=== PATIENT | female | born 1960 | race Caucasian/White ===

== ENCOUNTER → 2016-12-22 | Outpatient (CLI) | payer OTHER ==
--- NOTE | 2016-12-22 22:27 | MR ---
EXAMINATION TYPE: MR cervical spine wo con DATE OF EXAM: 12/22/2016 5:37 PM COMPARISON: 10/27/2014 HISTORY: Neck pain TECHNIQUE: Multiplanar, multisequence images of the cervical spine were acquired. C2-C3: No evidence for degenerative disc disease. No disc bulge/herniation or protrusion. No Canal stenosis. Foramina are patent bilaterally. C3-C4: No evidence for degenerative disc disease. No disc bulge/herniation or protrusion. No Canal stenosis. Foramina are patent bilaterally. Mild facet arthropathy. C4-C5: No evidence for degenerative disc disease. No disc bulge/herniation or protrusion. No Canal stenosis. Foramina are patent bilaterally. Mild facet arthropathy. C5-C6 level show broad based lobulated paracentral disc protrusion and marginal spurring effacing th e anterolateral thecal sac and causing mild to moderate bilateral neural foraminal narrowing, left greater than right. Severe left-sided foraminal encroachment noted. Moderate right-sided foraminal encroachment. Borderline jaren l stenosis. Axial images at the C6-C7 level small broad-based disc protrusion minimally effacing anterior thecal sac, bilateral neural foramina are patent. Axial images at the C7-T1 level are felt within normal limits. C7-T1: No evidence for degenerative disc disease. No disc bulge/herniation or protrusion. No Canal stenosis. Foramina are patent bilaterally. Cervical segments are intact. There is normal alignment. Cervical spinal cord is markedly limited f or abnormal signal due to artifact. Craniovertebral junction relationships are within normal limits. IMPRESSION: 1. Stable multilevel degenerative disc disease with severe changes at C5-6 and C6-C7. Disc protrusion s and uncovertebral joint hypertrophy at both levels result in bilateral foraminal encroachment great er on the left at both levels.
== END | disposition home or self-care (01) ==
LOC: RADMRIMAIN 16:19
PROVIDERS: ATTEND Psychiatry & Neurology Pain Medicine
DX: M50.222 Other cervical disc displacement at C5-C6 level (principal); M50.322 Other cervical disc degeneration at C5-C6 level
CPT/HCPCS: 72141

== ENCOUNTER 2018-05-08 02:42 | Observation (INO) | payer OTHER ==
[2018-05-08] MEDS ORDERED: MORPHINE SULFATE 2 MG/ML SYRINGE ONE ×3 (03:00)
[2018-05-08] MEDS ORDERED: SODIUM CHLORIDE 0.9% 1,000 ML BAG ONE ×2 (03:00)
[2018-05-08 05:29] LABS: Basophils # (A) 0.1 k/uL (0-0.2); Basophils % (A) 1 %; Eosinophils # (A) 0.1 k/uL (0-0.7); Eosinophils % (A) 1 %; HCT 44.6 % (34.0-46.0); HGB 14.9 gm/dL (11.4-16.0); Lymphocytes # (A) 2.1 k/uL (1.0-4.8); Lymphocytes % (A) 16 %; MCH 27.7 pg (25.0-35.0); MCHC 33.4 g/dL (31.0-37.0); MCV 82.9 fL (80.0-100.0); Mean Platelet Volume 6.6; Monocytes # (A) 0.6 k/uL (0-1.0); Monocytes % (A) 5 %; Neutrophils # (A) 10.2 k/uL (1.3-7.7); Neutrophils % (A) 78 %; Platelet Count 348 k/uL (150-450); RBC 5.38 m/uL (3.80-5.40); WBC 13.1 k/uL (3.8-10.6)
[2018-05-08 05:34] LABS: ALT 27 U/L (9-52); AST 18 U/L (14-36); Albumin 4.2 g/dL (3.5-5.0); Alkaline Phosphatase 71 U/L (38-126); Anion Gap 12 mmol/L; Blood Urea Nitrogen 18 mg/dL (7-17); Calcium 9.5 mg/dL (8.4-10.2); Carbon Dioxide 35 mmol/L (22-30); Chloride 97 mmol/L (98-107); Glucose 164 mg/dL (74-99); Partial Thromboplastin Time 27.8 sec (22.0-30.0); Potassium 3.5 mmol/L (3.5-5.1); Prothrombin Time 9.9 sec (9.0-12.0); Sodium 144 mmol/L (137-145); Total Bilirubin 0.3 mg/dL (0.2-1.3); Total Protein 7.2 g/dL (6.3-8.2)
[2018-05-08 05:36] LABS: Alcohol <10 mg/dL; Amylase 57 U/L (30-110); GGT 15 U/L (12-43); Lipase 199 U/L (23-300); Magnesium 1.9 mg/dL (1.6-2.3)
[2018-05-08 05:38] LABS: Appearance,Urine Clear (Clear); Bilirubin,Urine Negative (Negative); Blood,Urine Negative (Negative); Color,Urine Light Yellow; Glucose,Urine (UA) Negative (Negative); Ketones,Urine Negative (Negative); Leukocyte Esterase,Urine Negative (Negative); Nitrite,Urine Negative (Negative); PH, Urine 8.5 (5.0-8.0); Protein,Urine Trace (Negative); RBC,Urine 4 /hpf (0-5); Specific Gravity,Urine 1.023 (1.001-1.035); Squamous Epithelial Cell,Urine 1 /hpf (0-4); Urobilinogen,Urine <2.0 mg/dL (<2.0); WBC,Urine 1 /hpf (0-5)
--- NOTE | 2018-05-08 06:43 | CT ---
INDICATION: Abdominal pain, nausea and vomiting TECHNIQUE: CT acquisition is performed through the abdomen and pelvis following the administration of 100 mL Isovue-300 IV contrast. Early and delayed postcontrast imaging is performed. Sagittal and coronal reformatted images are provided. DOSE INFORMATION: CTDIvol 31.60 mGy; DLP 2092.60 mGy-cm. One or more of the following dose reduction techniques were used: automated exposure control, adjustment of the mA and/or kV according to patient size, use of iterative reconstruction technique. COMPARISON: CT abdomen and pelvis, 06/09/16. FINDINGS: The lung bases are clear. The gallbladder is surgically absent. The liver, spleen, and adrenal glands are unremarkable. There is a 2.5 x 2.7 cm cystic lesion in the tail of the pancreas, previously 2.4 x 2.1 cm. The pancreas is otherwise unremarkable. Kidneys are similar in size and enhancement. There is no hydronephrosis or perinephric stranding. There is aortoiliac atherosclerosis without aneurysm. There is no adenopathy. The appendix is not visualized. There are no obstructive or inflammatory changes of the bowel. There is left hemicolon diverticulosis without evidence of acute diverticulitis. Urinary bladder is unremarkable. Uterus is surgically absent. There are no acute osseous findings. IMPRESSION: 1. No CT evidence of acute or inflammatory process. 2. In comparison to CT performed 06/09/16, the cystic pancreatic mass has increased slightly in size, now measuring 2.5 x 2.7 cm, previously 2.4 x 2.1 cm. This is concerning for a mucinous cystic neoplasm, which can have malignant degeneration. Given increased size compared to prior, close follow-up and gastroenterology consultation are recommended to exclude malignancy.
[2018-05-08] MEDS ORDERED: ONDANSETRON 4 MG/2 ML VIAL IVP PRN (09:36)
[2018-05-08] MEDS: MORPHINE SULFATE 2 MG/ML SYRINGE IVP PRN ×3 (09:50→22:42)
[2018-05-08] MEDS: SODIUM CHLORIDE 0.9% 1,000 ML IV SCH (10:04)
[2018-05-08 13:29] VITALS: RESP 16
[2018-05-08] MEDS ORDERED: LORazepam 2 MG/ML INJ IV STA (14:16)
[2018-05-08] MEDS ORDERED: NITROGLYCERIN SL TABS 0.4 MG TAB SUBLINGUAL PRN (15:22)
[2018-05-08] MEDS: ASPIRIN 81 MG PO SCH (17:23)
[2018-05-08] MEDS: amLODIPine 10 MG TAB PO SCH (17:23)
[2018-05-08] MEDS: DULoxetine HCL 60 MG CAPSULE.DR PO SCH (17:23)
[2018-05-08] MEDS: LOSARTAN 50 MG TAB PO SCH (17:23)
[2018-05-08] MEDS: FENOFIBRATE 54 MG TAB PO SCH (17:23)
[2018-05-08] MEDS: PANTOPRAZOLE 40 MG TABLET PO SCH (17:23)
[2018-05-08] MEDS ORDERED: MAGNESIUM HYDROXIDE 2,400 MG/10 ML CUP PO PRN (21:12)
[2018-05-08] MEDS ORDERED: MELATONIN 3 MG TABLET PO PRN (21:12)
[2018-05-08] MEDS ORDERED: CALCIUM CARBONATE 500 MG CHEWABLE PO PRN (21:12)
[2018-05-08] MEDS ORDERED: LACTULOSE 20 GM/30 ML CUP PO PRN (21:12)
--- NOTE | 2018-05-08 21:48 | XR ---
EXAMINATION TYPE: XR abdomen 2V DATE OF EXAM: 05/08/2018 COMPARISON: 04/02/2009 HISTORY: Abdominal pain TECHNIQUE: Supine and upright views FINDINGS: There is no sign of intestinal obstruction or pneumoperitoneum. Fecal pattern is normal. Th ere is no evidence of a mass. There are clips from cholecystectomy. There is slight blunting of left costophrenic angle. There are no pathologic calcifications over the kidneys. IMPRESSION: Nonacute abdomen. There is mild pleural reaction at the left lung base.
--- NOTE | 2018-05-08 21:59 | HP ---
HISTORY AND PHYSICAL DATE OF ADMISSION: 05/08/2018. DATE OF SERVICE: 05/08/2018 PRESENTING COMPLAINT: Abdominal pain. HISTORY OF PRESENTING COMPLAINT: This is a pleasant 57-year-old patient of Dr. Wayne. Chronic stable medical conditions include GERD, hypertension, hyperlipidemia, osteoarthritis and chronic back pain from sciatica. The patient also states she has rheumatoid arthritis. The patient presented with increasing abdominal pain which started off started off about 4-5 days ago, spread to the entire abdomen, went up to the chest, went to her shoulders the back. Denied any denied any nausea, vomiting. There was no fever, no chills. The patient did do self-induced vomiting, managed to feel a bit better. The patient's last bowel movement was 2 days ago. Normally has a bowel movement every other day. Initial studies in the ER were unremarkable. REVIEW OF SYSTEMS: CONSTITUTIONAL: Tired. HEENT: None. RESPIRATORY: None. CARDIOVASCULAR: None. GASTROINTESTINAL: As above. GENITOURINARY: None. MUSCULOSKELETAL: Arthritic pain in different joints. DERMATOLOGICAL: None. HEMATOLOGIC: None. LYMPHATICS: None. PSYCHIATRY: None. NEUROLOGICAL: None. PAST HISTORY: GERD, hypertension, hyperlipidemia, osteoarthritis, cancer in a colon polyp, back pain from sciatica, questionable rheumatoid arthritis. Numbness, tingling in left hand 4th and 5th digits, bilaterally occasionally. PAST SURGICAL HISTORY: Breast surgery, cholecystectomy, hysterectomy, bilateral breast augmentation. PSYCH HISTORY: Anxiety, depression. 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 The patient states that client is an alcoholic. She uses a cane sometimes to get about. She does drive a client's truck. Client's name is Lex . The patient smokes about half a pack a day, drinks rarely now. Does marijuana about a half a joint today. The patient has been smoking since 1975. FAMILY HISTORY: Myocardial infarction. HOME MEDICATIONS: 1. MiraLAX 17 g p.o. daily p.r.n. 2. Nitrostat 0.4 sublingual q.5 p.r.n. 3. Aspirin 81 mg p.o. daily. 4. Ventolin HFA 1 puff q.4h p.r.n. 5. Prilosec 20 mg p.o. daily. 6. Losartan 100 mg p.o. daily. 7. Lofibra 54 mg p.o. daily. 8. Vitamin D2 50,000 units every 7 days. 9. Amlodipine 10 mg p.o. daily. 10.Cymbalta 60 mg p.o. daily. ALLERGIES: To LIPITOR, WELLBUTRIN, FLEXERIL, METOPROLOL, SIMVASTATIN. EXAMINATION: Temperature 96.1, pulse 79, respirations 16, blood pressure 150/80, pulse ox 93% on room air. GENERAL APPEARANCE: Well-built, BMI 33.5 mL. When I walked in the patient's room, the patient is rather comfortable on the back, playing on her smart phone. EYES: Pupils equal. Conjunctivae normal. HEENT: External appearance of nose and ears normal. Oral cavity normal. NECK: JVD not raised. Mass not palpable. RESPIRATORY: Effort normal. LUNGS: Diminished breath sounds. CARDIOVASCULAR: First and second heart sounds normal. No edema. ABDOMEN: Mild distention. Lower abdominal tenderness. No guarding or rigidity. Liver and spleen not palpable. LYMPHATIC: No lymph node palpable in neck or axillae. PSYCHIATRY: Alert and oriented x3. Mood and affect normal. NEUROLOGICAL: Pupils equal. Cranial nerves grossly intact. Power and sensation grossly intact. MUSCULOSKELETAL: Evidence of some osteoarthritis, especially in the hands. INVESTIGATION: White count 13.1. Potassium 3.5, BUN 18, creatinine 0.9. UA negative. Serum alcohol negative. CT scan of the abdomen and pelvis: No CT scan evidence of acute inflammatory process. There is a cystic pancreatic mass that is slightly increased in size, 2.5 x 2.7 cm. ASSESSMENT: 1. Cystic pancreatic mass measuring 2.5 x 2.7 cm, may or may not explain patient's abdominal pain, although may explain some or part of the presentation. If this is retroperitoneal, could explain the pain going to the back, although there is no associated acute pancreatitis. The patient's abdomen does not appear to be surgical. 2. Gastroesophageal reflux disease. 3. Hypertension. 4. Essential hyperlipidemia. 5. Primary osteoarthritis. 6. Obesity, BMI 33.5. 7. Chronic nicotine dependence in a cigarette smoker. PLAN: Patient's home medications are resumed. Consultation to GI and for general Surgery was made. The patient is kept on clear liquids and given IV fluids. The patient is also given nicotine patch. Will do a plain abdominal x-ray. MMODL / IJN: [id number] /
[2018-05-08] MEDS: NICOTINE 14MG/24HR PATCH TRANSDERM SCH (22:26)
[2018-05-09] MEDS: MORPHINE SULFATE 2 MG/ML SYRINGE IVP PRN (02:34)
[2018-05-09] MEDS: SODIUM CHLORIDE 0.9% 1,000 ML IV SCH ×2 (02:35→15:25)
[2018-05-09 06:03] VITALS: BP 104/68; PULSE 88; TEMP 96.5
--- NOTE | 2018-05-09 09:15 | P.CONS ---
History of Present Illness - Reason for Consult Consult date: 05/09/18 Abdominal pain pancreatic cyst Requesting physician: Rio Boyre - History of Present Illness 57-year-old female with a past medical history of pancreatic cyst, hyperlipidemia, hypertension, anxiety, depression cholecystectomy, admitted with severe abdominal pain nausea 1 week. No history of this type of pain. Patient describes it as burning located along midline between the epigastrium and infraumbilical region. Denies fever chills hematemesis hematochezia melena. CT abdomen and pelvis reported a 2.52.7 cm cystic lesion in the tail of the pancreas previously measuring 2.4 cm 2.1 cm. The pancreas is otherwise unremarkable. Gallbladder surgically absent. Liver spleen and adrenal glands are unremarkable. Mucinous cystic neoplasm could not be excluded. No history of pancreatitis or pancreatic disorders however patient believes she had a pancreatic surgery in [place] a few years ago unsure if they removed a cyst from her pancreas. No history of alcoholism. White count 13.1. Hemoglobin 14.9. LFTs amylase lipase within normal limits. CA-19-9 6.9. Inpatient MRCP/MRI pancreas attempted yesterday unsuccessful secondary to body habitus. Review of Systems Constitutional: Denies fever, chills, sweats, weight gain, or loss. HEENT: Negative for migraines, blurred vision or loss, earaches, drainage, tinnitus, oral mucosal lesions, dysphagia, or odynophagia. CARDIAC: Negative for chest pain, arrhythmias, or palpitation. RESPIRATORY: Negative for shortness of breath, hemoptysis, cough, or sputum production. GI: See HPI for pertinent findings. : Negative for hematuria, urgency, frequency, polyuria, or dysuria. GYNc: Negative vaginal discharge. MUSCULOSKELETAL: Negative for muscle aches, swelling, arthritis, and arthralgias. NEUROLOGIC: Negative for stroke or TIA. ENDOCRINE: Negative for thyroid problems. SKIN: Negative for rash or itching. PSYCHIATRIC: Negative history for depression and anxiety Past Medical History Past Medical History: Cancer, GERD/Reflux, Hyperlipidemia, Hypertension, Osteoarthritis (OA) Additional Past Medical History / Comment(s): Cancerous colon polyp with removal , chronic low back and cervical pain, sciatica bilaterally, numbness/tingling L hand 4th/5th digits, tinnitis bilaterally on occasion, pt states hospitalized for 4 days around 2001 for what she believes was alcohol poisoning affecting her kidneys, pt denies any lung disease but is on puffers for "sometimes alittle SOB." History of Any Multi-Drug Resistant Organisms: None Reported Past Surgical History: Breast Surgery, Cholecystectomy, Hysterectomy Additional Past Surgical History / Comment(s): EGD, bilateral breast augmentation, colonoscopy with 1 cancerous polyp removed. Past Anesthesia/Blood Transfusion Reactions: Motion Sickness Additional Past Anesthesia/Blood Transfusion Reaction / Comm: STATES COUGHS COMING OUT OF ANESTHESIA. PT STATES SHE HAS RECEIVED BLOOD IN PAST WITHOUT REACTION. Smoking Status: Current every day smoker - Past Family History Father Family Medical History: Coronary Artery Disease (CAD), CVA/TIA, Myocardial Infarction (IA) Additional Family Medical History / Comment(s): Father had MIs and CVAs. He had his first IA at the age of 70yrs. MOTHER Family Medical History: Cancer Additional Family Medical History / Comment(s): Mother had lung/liver/brain cancer which she at when she was 59yrs old. Medications and Allergies Home Medications Medication Instructions Recorded Confirmed Type amLODIPine BESYLATE [Amlodipine 10 mg PO DAILY 02/09/15 05/08/18 History Besylate] Albuterol Inhaler [Ventolin Hfa 1 puff INHALATION RT-Q4H PRN 03/16/16 05/08/18 History Inhaler] DULoxetine HCL [Cymbalta] 60 mg PO DAILY 03/16/16 05/08/18 History Nitroglycerin Sl Tabs [Nitrostat] 0.4 mg SUBLINGUAL Q5M PRN 03/16/16 05/08/18 History Aspirin EC [Ecotrin Low Dose] 81 mg PO DAILY 05/08/18 05/08/18 History Ergocalciferol (Vitamin D2) 50,000 unit PO Q7D 05/08/18 05/08/18 History [Vitamin D2] Fenofibrate [Lofibra] 54 mg PO DAILY 05/08/18 05/08/18 History Losartan Potassium 100 mg PO DAILY 05/08/18 05/08/18 History Omeprazole [PriLOSEC] 20 mg PO DAILY 05/08/18 05/08/18 History Polyethylene Glycol 3350 [Miralax] 17 gm PO DAILY PRN 05/08/18 05/08/18 History Allergies Allergy/AdvReac Type Severity Reaction Status Date / Time atorvastatin calcium AdvReac Confusion Verified 05/08/18 10:27 [From Lipitor] bupropion HCl AdvReac Abdominal Verified 05/08/18 10:27 [From Wellbutrin] Pain cyclobenzaprine HCl AdvReac depression Verified 05/08/18 10:27 [From Flexeril] metoprolol AdvReac Chest Pain Verified 05/08/18 10:27 simvastatin AdvReac heart burn Verified 05/08/18 10:27 Physical Exam Vitals: Vital Signs Temp Pulse Resp BP Pulse Ox 05/09/18 05:00 96.5 F L 88 16 104/68 94 L 05/08/18 23:00 96.0 F L 70 16 152/70 95 05/08/18 16:25 98 F 68 16 129/68 92 L 05/08/18 15:57 79 16 05/08/18 13:28 96.1 F L 79 16 152/80 93 L Intake and Output 05/08/18 05/09/18 05/09/18 22:59 06:59 14:59 Intake Total 225 600 Balance 225 600 Intake: Intake, IV Titration 225 600 Amount Sodium Chloride 0.9% 1, 225 600 000 ml @ 75 mls/hr IV . [id number] CARLOS Rx#:[id number] Other: Voiding Method Toilet Toilet # Voids 2 1 General appearance: The patient is alert, oriented, in no acute distress. HET: Head is normocephalic and atraumatic. Pupils are equal and reactive. Oropharynx is clear without lesions. Neck: Supple without lymphadenopathy. Trachea midline. Heart: S1 S2. Regular rate and rhythm. Lungs: No crackles or wheezes are heard. Abdomen: Soft, very mild tenderness along midline, nondistended with bowel sounds. No peritoneal signs. No palpable organomegaly or masses. Extremities: Normal skin color and turgor. No cyanosis, rash, ulceration, clubbing, or edema. Radial and pedal pulses are 2/4 bilaterally. Neurological: No focal deficits. Strength and sensation are grossly intact. Results CBC & Chem 7: 05/08/18 02:47 05/08/18 02:47 CT scan - abdomen: report reviewed (Dr. Hernandez) Assessment and Plan (1) Pancreatic cyst Narrative/Plan: 57-year-old female presents with 1 week history of intractable abdominal pain nausea with a history of pancreatic cysts with recent radiographic abdominal imaging reporting pancreatic tail cyst mucinous cystic neoplasm could not be excluded. Possible history of pancreatic surgery a few years ago in [place] patient is unable to provide details. Liver and pancreatic enzymes unremarkable. CA-19-9 within normal limits. Current Visit: Yes Status: Acute Code(s): K86.2 - CYST OF PANCREAS SNOMED Code(s): 32715084 (2) Intractable abdominal pain Current Visit: Yes Status: Acute Code(s): R10.9 - UNSPECIFIED ABDOMINAL PAIN SNOMED Code(s): 54357462 Plan: 1. Patient's abdominal pain is improved. Advised outpatient MRI pancreas; prescription provided, with follow up in GI office for reevaluation and discussion of outpatient referral for endoscopic ultrasound. No further workup at this time. Thank you for this kind referral and the opportunity to participate in the care of your patient. This consultation was discussed with Dr. Hernandez. The impression and plan of care have been directed as dictated.
[2018-05-09] MEDS: DULoxetine HCL 60 MG CAPSULE.DR PO SCH (09:25)
[2018-05-09] MEDS: NICOTINE 14MG/24HR PATCH TRANSDERM SCH (09:25)
[2018-05-09] MEDS: amLODIPine 10 MG TAB PO SCH (09:26)
[2018-05-09] MEDS: ASPIRIN 81 MG PO SCH (09:26)
[2018-05-09] MEDS: PANTOPRAZOLE 40 MG TABLET PO SCH (09:26)
[2018-05-09] MEDS: FENOFIBRATE 54 MG TAB PO SCH (09:26)
[2018-05-09] MEDS: LOSARTAN 50 MG TAB PO SCH (09:26)
--- NOTE | 2018-05-09 09:46 | P.GSCN ---
History of Present Illness Consult date: 05/09/18 History of present illness: HPI: Patient presented with acute onset nausea. She reports her nausea is improved today. She had a CT of the abdomen demonstrating a pancreatic lesion. She reports previous pancreatic surgery in [place] about 2 years ago. She has not recently followed up with her surgeon. Now here studies shows a possible recurrence. ABDOMEN: No peritonitis. PLAN: 1. Advance diet as tolerated. 2. GI consultation started. 3. She should follow-up with her hepatobiliary surgeon for recurrence. 4. No acute surgical intervention needed at this time. Past Medical History Past Medical History: Cancer, GERD/Reflux, Hyperlipidemia, Hypertension, Osteoarthritis (OA) Additional Past Medical History / Comment(s): Cancerous colon polyp with removal , chronic low back and cervical pain, sciatica bilaterally, numbness/tingling L hand 4th/5th digits, tinnitis bilaterally on occasion, pt states hospitalized for 4 days around 2001 for what she believes was alcohol poisoning affecting her kidneys, pt denies any lung disease but is on puffers for "sometimes alittle SOB." History of Any Multi-Drug Resistant Organisms: None Reported Past Surgical History: Breast Surgery, Cholecystectomy, Hysterectomy Additional Past Surgical History / Comment(s): EGD, bilateral breast augmentation, colonoscopy with 1 cancerous polyp removed. Past Anesthesia/Blood Transfusion Reactions: Motion Sickness Additional Past Anesthesia/Blood Transfusion Reaction / Comm: STATES COUGHS COMING OUT OF ANESTHESIA. PT STATES SHE HAS RECEIVED BLOOD IN PAST WITHOUT REACTION. Smoking Status: Current every day smoker - Past Family History Father Family Medical History: Coronary Artery Disease (CAD), CVA/TIA, Myocardial Infarction ([place]) Additional Family Medical History / Comment(s): Father had MIs and CVAs. He had his first AL at the age of 70yrs. MOTHER Family Medical History: Cancer Additional Family Medical History / Comment(s): Mother had lung/liver/brain cancer which she at when she was 57yrs old. Medications and Allergies Home Medications Medication Instructions Recorded Confirmed Type amLODIPine BESYLATE [Amlodipine 10 mg PO DAILY 02/09/15 05/08/18 History Besylate] Albuterol Inhaler [Ventolin Hfa 1 puff INHALATION RT-Q4H PRN 03/16/16 05/08/18 History Inhaler] DULoxetine HCL [Cymbalta] 60 mg PO DAILY 03/16/16 05/08/18 History Nitroglycerin Sl Tabs [Nitrostat] 0.4 mg SUBLINGUAL Q5M PRN 03/16/16 05/08/18 History Aspirin EC [Ecotrin Low Dose] 81 mg PO DAILY 05/08/18 05/08/18 History Ergocalciferol (Vitamin D2) 50,000 unit PO Q7D 05/08/18 05/08/18 History [Vitamin D2] Fenofibrate [Lofibra] 54 mg PO DAILY 05/08/18 05/08/18 History Losartan Potassium 100 mg PO DAILY 05/08/18 05/08/18 History Omeprazole [PriLOSEC] 20 mg PO DAILY 05/08/18 05/08/18 History Polyethylene Glycol 3350 [Miralax] 17 gm PO DAILY PRN 05/08/18 05/08/18 History Allergies Allergy/AdvReac Type Severity Reaction Status Date / Time atorvastatin calcium AdvReac Confusion Verified 05/08/18 10:27 [From Lipitor] bupropion HCl AdvReac Abdominal Verified 05/08/18 10:27 [From Wellbutrin] Pain cyclobenzaprine HCl AdvReac depression Verified 05/08/18 10:27 [From Flexeril] metoprolol AdvReac Chest Pain Verified 05/08/18 10:27 simvastatin AdvReac heart burn Verified 05/08/18 10:27 Surgical - Exam Vital Signs Temp Pulse Resp BP Pulse Ox 96.1 F L 79 16 152/80 93 L 05/08/18 13:28 05/08/18 13:28 05/08/18 13:28 05/08/18 13:28 05/08/18 13:28 Results - Labs 05/08/18 02:47 05/08/18 02:47
--- NOTE | 2018-05-10 05:51 | DS ---
DISCHARGE SUMMARY DATE OF ADMISSION: May 08, 2018. DATE OF DISCHARGE: May 09, 2018. FINAL DIAGNOSES: 1. Pancreatic mass suspicious for malignancy. 2. Gastroesophageal reflux disease. 3. Essential hypertension. 4. Hyperlipidemia. 5. Primary osteoarthritis. 6. Obesity; BMI 33.5. 7. Chronic nicotine dependence, patient is a cigarette smoker. HOSPITAL COURSE: The patient presented with increasing abdominal pain. No fever, no chills. CT scan of the abdomen showed a 2.5 x 2.7 cm pancreatic mass that is increased from before. The patient was seen by Dr. Hernandez from Gastroenterology. Since this patient's pain was improved, patient tolerating a diet, they decided to let the patient go home. Outpatient MRI of the pancreas is being arranged and will follow up in the Gastroenterology office for and possible referral for endoscopic ultrasound. The patient also seen by Dr. Negron from General surgery. On examination: Abdomen soft, nontender. Patient advised against smoking. DISCHARGE MEDICATIONS: 1. Amlodipine 10 mg a day. 2. Ventolin HFA 1 puff q.4h p.r.n. 3. Cymbalta 60 mg a day. 4. Nitrostat 0.4 sublingual q.5 p.r.n. 5. Aspirin 81 mg a day. 6. Vitamin D2 50,000 units p.o. every 7 days. 7. Lofibra 54 mg p.o. daily. 8. Losartan 100 mg p.o. daily. 9. Prilosec 20 mg p.o. daily. 10.MiraLAX 17 g p.o. daily p.r.n. 11.Nicotine patch. FOLLOW UP: Follow up with Dr. Hernandez on June 18, 2018. Follow up with Dr. Wayne on May 14, 2018 MRI has been order by Gastroenterology. Diet to be advanced as tolerated. Copy Dr. Wayne. MMODL / IJN: [id number] /
== END 2018-05-09 16:45 | disposition home or self-care (01) ==
LOC: EC 02:42 → 5MS5E 05:50 → INTOOBSV 05:50 → EC 07:05
PROVIDERS: ADMIT Hospitalist; ATTEND Hospitalist
DX: K86.9 Disease of pancreas, unspecified (principal); K21.9 Gastro-esophageal reflux disease without esophagitis; I10 Essential (primary) hypertension; E78.5 Hyperlipidemia, unspecified; Z68.33 Body mass index [BMI] 33.0-33.9, adult; E66.9 Obesity, unspecified; M19.91 Primary osteoarthritis, unspecified site; K86.2 Cyst of pancreas; R20.2 Paresthesia of skin; R20.0 Anesthesia of skin; F41.9 Anxiety disorder, unspecified; F32.9 Major depressive disorder, single episode, unspecified; F17.210 Nicotine dependence, cigarettes, uncomplicated; G89.29 Other chronic pain; M06.9 Rheumatoid arthritis, unspecified; M19.042 Primary osteoarthritis, left hand; M19.041 Primary osteoarthritis, right hand; M54.32 Sciatica, left side; M54.2 Cervicalgia; M54.31 Sciatica, right side; Z85.038 Personal history of other malignant neoplasm of large intestine; Z79.82 Long term (current) use of aspirin; Z79.899 Other long term (current) drug therapy; Z88.8 Allergy status to other drugs, medicaments and biological substances; Z90.49 Acquired absence of other specified parts of digestive tract; Z82.49 Family history of ischemic heart disease and other diseases of the circulatory system; Z80.8 Family history of malignant neoplasm of other organs or systems; Z80.1 Family history of malignant neoplasm of trachea, bronchus and lung; Z82.3 Family history of stroke; Z88.6 Allergy status to analgesic agent; Z91.048 Other nonmedicinal substance allergy status; M32.9 Systemic lupus erythematosus, unspecified
CPT/HCPCS: 99285; 96374; 96361 ×6; 96376 ×4; 96375; 36415; 80053; 82150; 82977; 83605; 83690; 83735; 85025; 85610; 85730; 81003; 86301; 80320; 74019; 74177; G0378 ×3; S4990 ×2; J2060; J2405; J2270 ×2; Q9967

== ENCOUNTER → 2019-01-10 | Outpatient (CLI) | payer OTHER ==
--- NOTE | 2019-01-14 09:05 | MM ---
Reason for exam: screening (asymptomatic). Last mammogram was performed 2 years and 9 months ago. History: Patient is postmenopausal and has history of colon cancer at age 54. Pre-pectoral silicone gel implants in both breasts, 1988. Physical Findings: A clinical breast exam by your physician is recommended on an annual basis and results should be correlated with mammographic findings. MG Screening Mammo Implant/CAD Bilateral CC, MLO, and ID view(s) were taken. Prior study comparison: April 11, 2016, bilateral MG screening mammo implant/CAD. March 30, 2009, bilateral diagnostic digital mammog. The breast tissue is heterogeneously dense. This may lower the sensitivity of mammography. There is chronic nodularity bilaterally laterally. Bilateral prepectoral silicone implants. No significant changes when compared with prior studies. ASSESSMENT: Benign, BI-RAD 2 RECOMMENDATION: Routine screening mammogram of both breasts in 1 year.
== END | disposition home or self-care (01) ==
LOC: RADMAMWWP 12:58
PROVIDERS: ATTEND Family Medicine
DX: Z12.31 Encounter for screening mammogram for malignant neoplasm of breast (principal)
CPT/HCPCS: 77067

== ENCOUNTER → 2019-07-03 | Outpatient (CLI) | payer OTHER ==
--- NOTE | 2019-07-03 16:21 | US ---
EXAMINATION TYPE: US carotid duplex BILAT DATE OF EXAM: 07/03/2019 COMPARISON: US 2016 CLINICAL HISTORY: R20.0 ANESTHESIA OF SKIN. Left hand pain and numbness x couple weeks EXAM MEASUREMENTS: RIGHT: Peak Systolic Velocity (PSV) cm/sec ----- Right CCA: 85.5 ----- Right ICA: 111.3 ----- Right ECA: 106.3 ICA/CCA ratio: 1.3 RIGHT: End Diastole cm/sec ----- Right CCA: 20.6 ----- Right ICA: 37.2 ----- Right ECA: 16.1 LEFT: Peak Systolic Velocity (PSV) cm/sec ----- Left CCA: 73.0 ----- Left ICA: 109.5 ----- Left ECA: 91.2 ICA/CCA ratio: 1.5 LEFT: End Diastole cm/sec ----- Left CCA: 17.2 ----- Left ICA: 41.8 ----- Left ECA: 23.8 VERTEBRALS (direction of flow): Right Vertebral: Antegrade Left Vertebral: Antegrade Rhythm: Arrhythmia Bilateral intimal thickening, minimal plaque bilateral bulb and proximal ICA, bilateral torturous ICA , no elevated velocities, no significant stenosis. IMPRESSION: 1. Mild degree of grayscale atheromatous plaquing with no sonographically evident hemodynamically sig nificant stenosis within either visualized carotid arterial system. 2. Cardiac arrhythmia. Correlate with EKG. Criteria for Assigning % of Stenosis / Diameter reduction (Estimation based on the indirect measurements of the internal carotid artery velocities (ICA PSV). 1. Normal (no stenosis)=ICA PSV < 125 cm/s: ratio < 2.0: ICA EDV<40 cm/s. 2. Less than 50% stenosis=ICA PSV < 125 cm/s: ratio < 2.0: ICA EDV<40 cm/s. 3. 50 to 69% stenosis=ICA PSV of 125 to 230 cm/s: ration 2.0 ? 4.0: ICA EDV 40-100 cm/s. 4. Greater than 70% stenosis to near occlusion= ICA PSV > 230 cm/s: ratio > 4.0: ICA EDV > 100 cm/s. 5. Near occlusion= ICA PSV velocities may be low or undetectable: variable ratio and ICA EDV. 6. Total occlusion=unable to detect flow.
== END | disposition home or self-care (01) ==
LOC: RADUSWWP 15:45
PROVIDERS: ATTEND Family Medicine
DX: I49.9 Cardiac arrhythmia, unspecified (principal); I67.2 Cerebral atherosclerosis; R20.0 Anesthesia of skin
CPT/HCPCS: 93880

== ENCOUNTER → 2021-04-04 | Outpatient (CLI) | payer OTHER ==
--- NOTE | 2021-04-04 11:01 | US ---
EXAMINATION TYPE: US pelvic complete DATE OF EXAM: 04/04/2021 COMPARISON: NONE CLINICAL HISTORY: 60-year-old female R10.9 abd pain. LUQ pain, h/o constipation and just finished med ication for it, partial hysterectomy 32 yrs ago TECHNIQUE: Transabdominal sonographic images of the pelvis were acquired. Patient asked to fill blad rosendo more or try a TV approach and she refused both. Date of LMP: 32 yrs ago FINDINGS: EXAM MEASUREMENTS: Uterus: Surgically absent Right Ovary: not seen Left Ovary: not seen 1. Uterus: Surgically absent 2. Endometrium: Surgically absent 3. Right Ovary: not seen due to atrophy and overlying bowel gas 4. Left Ovary: not seen due to atrophy and overlying bowel gas 5. Bilateral Adnexa: wnl 6. Posterior cul-de-sac: wnl IMPRESSION: Status post hysterectomy. Neither ovary could be visualized. The patient declined attempt at further filling the bladder or a transvaginal ultrasound.
== END | disposition home or self-care (01) ==
LOC: RADUSWWP 08:24
PROVIDERS: ATTEND Family Medicine
DX: R10.9 Unspecified abdominal pain (principal); Z90.710 Acquired absence of both cervix and uterus
CPT/HCPCS: 76856

== ENCOUNTER → 2022-02-24 | Outpatient (CLI) | payer OTHER ==
--- NOTE | 2022-02-27 09:38 | MM ---
Reason for exam: screening (asymptomatic). Last mammogram was performed 3 years and 1 month ago. History: Patient is postmenopausal and has history of colon cancer at age 54. Pre-pectoral silicone gel implants in both breasts, 1988. Physical Findings: A clinical breast exam by your physician is recommended on an annual basis and results should be correlated with mammographic findings. MG Screening Mammo Implant/CAD Bilateral CC, MLO, and ID view(s) were taken. Prior study comparison: January 10, 2019, bilateral MG screening mammo implant/CAD. April 11, 2016, bilateral MG screening mammo implant/CAD. The breast tissue is heterogeneously dense. This may lower the sensitivity of mammography. Bilateral implants are intact. ASSESSMENT: Negative, BI-RAD 1 RECOMMENDATION: Routine screening mammogram of both breasts in 1 year.
== END | disposition home or self-care (01) ==
LOC: RADMAMWWP 13:37
PROVIDERS: ATTEND Family Medicine
DX: Z12.31 Encounter for screening mammogram for malignant neoplasm of breast (principal); Z78.0 Asymptomatic menopausal state; Z85.038 Personal history of other malignant neoplasm of large intestine
CPT/HCPCS: 77067

== ENCOUNTER → 2022-04-20 | Outpatient (CLI) | payer OTHER ==
--- NOTE | 2022-04-20 15:40 | US ---
EXAMINATION TYPE: US kidneys/renal and bladder DATE OF EXAM: 04/20/2022 COMPARISON: 11/2015 CLINICAL HISTORY: N18.32 CKD STAGE 3. CKD STAGE 3B, BACK PAIN EXAM MEASUREMENTS: Right Kidney: 11.3 x 5.8 x 5.1 cm Left Kidney: 10.8 x 6.0 x 5.1 cm Right Kidney: No hydronephrosis or masses seen Left Kidney: NO HYDRO OR STONES SEEN, HYPOECHOIC AREA CHEY. 3.1 x 2.5 x 3.3cm probably a cyst, follow -up for stability is recommended Bladder: NOT FULLY DISTENDED Bilateral Jets seen: Yes IMPRESSION: Inferior pole left renal cyst. Follow-up is recommended
[2022-04-20 19:01] LABS: African American GFR (CKD) 69.4 (60.0-200.0); Albumin 4.3 g/dL (3.8-4.9); Anion Gap 10.6 mmol/L (10.00-18.00); Calcium 9.4 mg/dL (8.7-10.3); Carbon Dioxide 27.4 mmol/L (20.0-27.5); Non-African American GFR(CKD) 59.9 (60.0-200.0); Phosphorus 3.7 mg/dL (2.4-5.1); Potassium 4.2 mmol/L (3.5-5.5)
== END | disposition home or self-care (01) ==
LOC: RADUSWWP 14:22
PROVIDERS: ATTEND Family Medicine
DX: N18.32 Chronic kidney disease, stage 3b (principal); N28.1 Cyst of kidney, acquired
CPT/HCPCS: 76770; 80069; 82306; 83970

== ENCOUNTER → 2022-06-29 | Outpatient (CLI) | payer OTHER ==
--- NOTE | 2022-06-29 14:58 | US ---
EXAMINATION TYPE: US groin RT DATE OF EXAM: 06/29/2022 COMPARISON: CT a/p dated 05/08/2018 CLINICAL HISTORY: G57.21 LESION OF FEMORAL NERVE, RIGHT LOWER LIMB. PAIN IN RIGHT LEG FROM THIGH TO G ROIN, BURNING, NUMBNESS, PALPABLE HIGHER UP IN GROIN Soft tissue scan of right groin produces at lymph node near area of palpable that was 0.8 x 1.0 x 0.5 cm, otherwise no focal abnormality seen Benign lymph node at palpable abnormality right groin. IMPRESSION: As above.
== END | disposition home or self-care (01) ==
LOC: RADUSWWP 13:40
PROVIDERS: ATTEND Family Medicine
DX: D36.0 Benign neoplasm of lymph nodes (principal); G57.21 Lesion of femoral nerve, right lower limb

== ENCOUNTER → 2023-02-26 | Outpatient (CLI) | payer OTHER ==
--- NOTE | 2023-02-27 09:05 | MM ---
Reason for Exam: Screening (asymptomatic). Last mammogram was performed 1 year(s) and 1 month(s) ago. Indicated Problems: Lump or thickening of the left side for 2 Week(s). Patient History: Menarche at age 15. First Full-Term at age 17. Hysterectomy at age 28. Postmenopausal. Patient has history of breast feeding. Colorectal cancer, age 54. 1989, Bilateral Implants. Risk Values: Andreina 5 year model risk: 1.1%. NCI Lifetime model risk: 4.3%. Prior Study Comparison: 04/11/2016 Bilateral Screening Mammogram, [facility]. 01/10/2019 Bilateral Screening Mammogram, [facility]. 02/24/2022 Bilateral Screening Mammogram, [facility]. Tissue Density: There are scattered fibroglandular densities. Findings: Analyzed By CAD. Bilateral breast implants. No finding to correlate patient's palpable abnormality. There is no suspicious group of microcalcifications or new suspicious mass in either breast. Overall Assessment: Incomplete: need additional imaging evaluation, BI-RAD 0 Management: Diagnostic Breast Ultrasound of the left breast. Ultrasound imaging for palpable abnormality. Patient should continue monthly self-breast exams. A clinical breast exam by your physician is recommended on an annual basis. This exam should not preclude additional follow-up of suspicious palpable abnormalities. Note on Andreina scores and lifetime risk: 1. A Andreina score greater than 3% is considered moderate risk. If this is the case, consider specialist referral to assess eligibility for a risk reducing agent. 2. If overall lifetime risk for the development of breast cancer is 20% or higher, the patient may qualify for future screening with alternating mammogram and breast MRI. Electronically signed and approved by: Valentin Pedraza DO
== END | disposition home or self-care (01) ==
LOC: RADMAMWWP 13:02
PROVIDERS: ATTEND Family Medicine
DX: Z12.31 Encounter for screening mammogram for malignant neoplasm of breast (principal); Z78.0 Asymptomatic menopausal state
CPT/HCPCS: 77067

== ENCOUNTER 2023-11-20 08:45 | Emergency (ER) | payer MEDICARE, OTHER ==
--- NOTE | 2023-11-20 09:16 | ED ---
General Adult HPI - General Chief complaint: Allergic Reaction Stated complaint: allergic reaction to medication Time Seen by Provider: 11/20/23 09:00 Source: patient, RN notes reviewed, old records reviewed Mode of arrival: wheelchair Limitations: no limitations - History of Present Illness Initial comments: This is a 63-year-old female who presents to the emergency department stating that she is here for right-sided flank pain. Patient states the pain is from her back around the right flank. Patient states it definitely increases with movement. Patient denies nausea vomiting diarrhea. Patient states she has been constipated since Sunday. Patient states the pain in the flank started yesterday. Patient denies any dysuria hematuria urinary frequency. Patient denies any fever or chills. Patient Nuys any chest pain difficulty breathing. Patient did state she has some tingling sensation is of her l lower lip and chin have had Novocain but she states it has been ongoing for 2 weeks ever since she used a vaginal cream 1 time - Related Data Home Medications Medication Instructions Recorded Confirmed amLODIPine BESYLATE [Amlodipine 10 mg PO DAILY 02/09/15 05/08/18 Besylate] Albuterol Inhaler [Ventolin Hfa 1 puff INHALATION RT-Q4H PRN 03/16/16 05/08/18 Inhaler] DULoxetine HCL [Cymbalta] 60 mg PO DAILY 03/16/16 05/08/18 Nitroglycerin Sl Tabs [Nitrostat] 0.4 mg SUBLINGUAL Q5M PRN 03/16/16 05/08/18 Aspirin EC [Ecotrin Low Dose] 81 mg PO DAILY 05/08/18 05/08/18 Ergocalciferol (Vitamin D2) 50,000 unit PO Q7D 05/08/18 05/08/18 [Vitamin D2] Fenofibrate [Lofibra] 54 mg PO DAILY 05/08/18 05/08/18 Losartan Potassium 100 mg PO DAILY 05/08/18 05/08/18 Omeprazole [PriLOSEC] 20 mg PO DAILY 05/08/18 05/08/18 polyethylene glycoL 3350 [Miralax] 17 gm PO DAILY PRN 05/08/18 05/08/18 Previous Rx's Medication Instructions Recorded Nicotine 14Mg/24Hr Patch [Habitrol] 1 patch TRANSDERM DAILY #14 patch 05/09/18 Ketorolac [Toradol] 10 mg PO Q6HR #15 tab 11/20/23 Allergies Allergy/AdvReac Type Severity Reaction Status Date / Time atorvastatin calcium AdvReac Confusion Verified 11/20/23 08:52 [From Lipitor] bupropion HCl AdvReac Abdominal Verified 11/20/23 08:52 [From Wellbutrin] Pain cyclobenzaprine HCl AdvReac depression Verified 11/20/23 08:52 [From Flexeril] metoprolol AdvReac Chest Pain Verified 11/20/23 08:52 simvastatin AdvReac heart burn Verified 11/20/23 08:52 Review of Systems ROS Statement: Those systems with pertinent positive or pertinent negative responses have been documented in the HPI. ROS Other: All systems not noted in ROS Statement are negative. Past Medical History Past Medical History: Cancer, GERD/Reflux, Hyperlipidemia, Hypertension, Osteoarthritis (OA) Additional Past Medical History / Comment(s): Cancerous colon polyp with removal, chronic low back and cervical pain, sciatica bilaterally, numbness/ti ngling L hand 4th/5th digits, tinnitis bilaterally on occasion, pt states hospitalized for 4 days around 2001 for what she believes was alcohol poisoning affecting her kidneys, pt denies any lung disease but is on puffers for "sometimes alittle SOB." History of Any Multi-Drug Resistant Organisms: None Reported Past Surgical History: Breast Surgery, Cholecystectomy, Hysterectomy Additional Past Surgical History / Comment(s): EGD, bilateral breast augmentation, colonoscopy with 1 cancerous polyp removed. Past Anesthesia/Blood Transfusion Reactions: Motion Sickness Additional Past Anesthesia/Blood Transfusion Reaction / Comment(s): STATES COUGHS COMING OUT OF ANESTHESIA. PT STATES SHE HAS RECEIVED BLOOD IN PAST WITHOUT REACTION. Past Psychological History: Anxiety, Depression Past Alcohol Use History: None Reported Past Drug Use History: Marijuana - Past Family History Father Family Medical History: Coronary Artery Disease (CAD), CVA/TIA, Myocardial Infarction ([place]) Additional Family Medical History / Comment(s): Father had MIs and CVAs. He had his first OK at the age of 70yrs. MOTHER Family Medical History: Cancer Additional Family Medical History / Comment(s): Mother had lung/liver/brain cancer which she at when she was 59yrs old. General Exam - General Exam Comments Initial Comments: GENERAL: Patient is well-developed and well-nourished. Patient is nontoxic and well- hydrated and is in mild distress. ENT: Neck is soft and supple. No significant lymphadenopathy is noted. Oropharynx is clear. Moist mucous membranes. Neck has full range of motion without elicit ing any pain. EYES: The sclera were anicteric and conjunctiva were pink and moist. Extraocular m ovements were intact and pupils were equal round and reactive to light. Eyelids were unremarkable. PULMONARY: Unlabored respirations. Good breath sounds bilaterally. No audible rales rhonchi or wheezing was noted. CARDIOVASCULAR: There is a regular rate and rhythm without any murmurs gallops or rubs. ABDOMEN: Soft and nontender with normal bowel sounds. SKIN: Skin is clear with no lesions or rashes and otherwise unremarkable. NEUROLOGIC: Patient is alert and oriented x3. Cranial nerves II through XII are grossly intact. Motor and sensory are also intact. Normal speech, volume and content. Symmetrical smile. MUSCULOSKELETAL: Normal extremities with adequate strength and full range of motion. Mild CVA tenderness on the left LYMPHATICS: No significant lymphadenopathy is noted PSYCHIATRIC: Normal psychiatric evaluation. Limitations: no limitations Course Vital Signs 11/20/23 08:54 Temperature 97.8 F Pulse Rate 73 Respiratory 16 Rate Blood Pressure 157/91 O2 Sat by Pulse 94 L Oximetry Medical Decision Making - Lab Data Result diagrams: 11/20/23 09:32 11/20/23 09:32 Lab Results 11/20/23 11/20/23 11/20/23 Range/Units 09:32 09:32 09:32 WBC 8.8 (3.8-10.6) k/uL RBC 4.92 (3.80-5.40) m/uL Hgb 15.2 (11.4-16.0) gm/dL Hct 43.4 (34.0-46.0) % MCV 88.1 (80.0-100.0) fL MCH 30.8 (25.0-35.0) pg MCHC 34.9 (31.0-37.0) g/dL RDW 12.5 (11.5-15.5) % Plt Count 227 (150-450) k/uL MPV 7.2 Neutrophils % 79 % Lymphocytes % 13 % Monocytes % 5 % Eosinophils % 1 % Basophils % 1 % Neutrophils # 7.0 (1.3-7.7) k/uL Lymphocytes # 1.1 (1.0-4.8) k/uL Monocytes # 0.5 (0-1.0) k/uL Eosinophils # 0.1 (0-0.7) k/uL Basophils # 0.1 (0-0.2) k/uL Sodium 135 L (137-145) mmol/L Potassium 3.4 L (3.5-5.1) mmol/L Chloride 102 (98-107) mmol/L Carbon Dioxide 26 (22-30) mmol/L Anion Gap 7 mmol/L BUN 19 H (7-17) mg/dL Creatinine 0.98 (0.52-1.04) mg/dL Est GFR (CKD-EPI)AfAm 70 (>60 ml/min/1.73 sqM) Est GFR (CKD-EPI)NonAf 61 (>60 ml/min/1.73 sqM) Glucose 129 H (74-99) mg/dL Calcium 9.3 (8.4-10.2) mg/dL Total Bilirubin 0.5 (0.2-1.3) mg/dL AST 26 (14-36) U/L ALT 17 (4-34) U/L Alkaline Phosphatase 66 (38-126) U/L Total Protein 7.0 (6.3-8.2) g/dL Albumin 4.0 (3.5-5.0) g/dL Amylase 63 (30-110) U/L Lipase 155 (23-300) U/L Urine Color Light Yellow Urine Appearance Clear (Clear) Urine pH 6.5 (5.0-8.0) Ur Specific [place] 1.010 (1.001-1.035) Urine Protein Negative (Negative) Urine Glucose (UA) Negative (Negative) Urine Ketones Negative (Negative) Urine Blood Trace H (Negative) Urine Nitrite Negative (Negative) Urine Bilirubin Negative (Negative) Urine Urobilinogen <2.0 (<2.0) mg/dL Ur Leukocyte Esterase Negative (Negative) Urine RBC <1 (0-5) /hpf Urine WBC <1 (0-5) /hpf Ur Squamous Epith Cells 3 (0-4) /hpf Urine Bacteria Rare H (None) /hpf Hyaline Casts 1 (0-2) /lpf Urine Mucus Rare H (None) /hpf Disposition Clinical Impression: Musculoskeletal back pain Disposition: HOME SELF-CARE Instructions (If sedation given, give patient instructions): Back Pain (ED) Prescriptions: Ketorolac [Toradol] 10 mg PO Q6HR #15 tab Is patient prescribed a controlled substance at d/c from ED?: No Referrals: Emile Wayne MD [Primary Care Provider] - 1-2 days Time of Disposition: 11:11
[2023-11-20] MEDS ORDERED: KETOROLAC 15 MG/ML 1 ML VIAL IVP STA (09:17)
[2023-11-20 09:45] LABS: Basophils # (A) 0.1 k/uL (0-0.2); Basophils % (A) 1 %; Eosinophils # (A) 0.1 k/uL (0-0.7); Eosinophils % (A) 1 %; HCT 43.4 % (34.0-46.0); HGB 15.2 gm/dL (11.4-16.0); Lymphocytes # (A) 1.1 k/uL (1.0-4.8); Lymphocytes % (A) 13 %; MCH 30.8 pg (25.0-35.0); MCHC 34.9 g/dL (31.0-37.0); MCV 88.1 fL (80.0-100.0); Mean Platelet Volume 7.2; Monocytes # (A) 0.5 k/uL (0-1.0); Monocytes % (A) 5 %; Neutrophils % (A) 79 %; Platelet Count 227 k/uL (150-450); RBC 4.92 m/uL (3.80-5.40); RDW 12.5 % (11.5-15.5); WBC 8.8 k/uL (3.8-10.6)
--- NOTE | 2023-11-20 09:49 | XR ---
EXAMINATION TYPE: XR abdomen 2V DATE OF EXAM: 11/20/2023 9:30 AM CLINICAL INDICATION:Female, 63 years old with history of abdominal pain; [facility] COMPARISON: 05/08/2018.. TECHNIQUE: Two views of the abdomen were obtained. FINDINGS: The bowel gas pattern is nonspecific without dilated loops of small or large bowel. There i s no evidence for organomegaly or pneumoperitoneum. The osseous structures are intact. No abnormal calcifications are present. Fecal material and gas are demonstrated throughout the colon and rectum. Breast implant in the right breast. Right upper quadrant cholecystectomy clips. Multilevel degenerat ion changes throughout the spine. IMPRESSION: Nonspecific bowel gas pattern without radiographic evidence for acute process.
[2023-11-20 09:56] LABS: ALT 17 U/L (4-34); AST 26 U/L (14-36); African American GFR (CKD) 70 (>60 ml/min/1.73 sqM); Alkaline Phosphatase 66 U/L (38-126); Amylase 63 U/L (30-110); Anion Gap 7 mmol/L; Blood Urea Nitrogen 19 mg/dL (7-17); Calcium 9.3 mg/dL (8.4-10.2); Carbon Dioxide 26 mmol/L (22-30); Chloride 102 mmol/L (98-107); Glucose 129 mg/dL (74-99); Lipase 155 U/L (23-300); Non-African American GFR(CKD) 61 (>60 ml/min/1.73 sqM); Potassium 3.4 mmol/L (3.5-5.1); Sodium 135 mmol/L (137-145); Total Bilirubin 0.5 mg/dL (0.2-1.3)
[2023-11-20 10:06] LABS: Appearance,Urine Clear (Clear); Bacteria,Urine Rare /hpf; Bilirubin,Urine Negative (Negative); Blood,Urine Trace (Negative); Color,Urine Light Yellow; Glucose,Urine (UA) Negative (Negative); Hyaline Casts,Urine 1 /lpf (0-2); Ketones,Urine Negative (Negative); Leukocyte Esterase,Urine Negative (Negative); Mucus,Urine Rare /hpf; Nitrite,Urine Negative (Negative); PH, Urine 6.5 (5.0-8.0); Protein,Urine Negative (Negative); RBC,Urine <1 /hpf (0-5); Squamous Epithelial Cell,Urine 3 /hpf (0-4); Urobilinogen,Urine <2.0 mg/dL (<2.0); WBC,Urine <1 /hpf (0-5)
[2023-11-20 11:14] VITALS: BP 138/77; PULSE 67; RESP 18; TEMP 97.7
== END 2023-11-20 11:00 | disposition home or self-care (01) ==
LOC: EC 08:45
DX: M79.10 Myalgia, unspecified site (principal); I10 Essential (primary) hypertension; E78.5 Hyperlipidemia, unspecified; F32.A Depression, unspecified; F41.9 Anxiety disorder, unspecified; K21.9 Gastro-esophageal reflux disease without esophagitis; M19.90 Unspecified osteoarthritis, unspecified site; F12.90 Cannabis use, unspecified, uncomplicated; Z79.82 Long term (current) use of aspirin; Z79.899 Other long term (current) drug therapy; Z88.8 Allergy status to other drugs, medicaments and biological substances; Z90.49 Acquired absence of other specified parts of digestive tract
CPT/HCPCS: 36415; 80053; 82150; 83690; 85025; 81001; 74019; 99284; 96374; J1885

== ENCOUNTER 2023-11-29 07:58 | Emergency (ER) | payer MEDICARE, OTHER ==
[2023-11-29 08:20] VITALS: RESP 18
--- NOTE | 2023-11-29 09:05 | ED ---
General Adult HPI - General Chief complaint: Weakness Stated complaint: DECREASED MOBILITY Time Seen by Provider: 11/29/23 08:15 Source: EMS Mode of arrival: EMS Limitations: no limitations - History of Present Illness Initial comments: Dictation was produced using [employer] dictation software. please excuse any grammatical, word or spelling errors. Chief Complaint: 63-year-old female with chronic pain presents to the ER for complete back pain and whole body tingling History of Present Illness: Patient 63-year-old female she has history of hypertension dyslipidemia. She states that for the last several days she has had tingling from her chest all the way down to her legs along with cervical thoracic and lumbar back pain. Denies any trauma. Denies any saddle anesthesia. No fever chills or night sweats. The ROS documented in this emergency department record has been reviewed and confirmed by me. Those systems with pertinent positive or negative responses have been documented in the HPI. All other systems are other negative and/or noncontributory. - Related Data Home Medications Medication Instructions Recorded Confirmed amLODIPine BESYLATE [Amlodipine 10 mg PO DAILY 02/09/15 05/08/18 Besylate] Albuterol Inhaler [Ventolin Hfa 1 puff INHALATION RT-Q4H PRN 03/16/16 05/08/18 Inhaler] DULoxetine HCL [Cymbalta] 60 mg PO DAILY 03/16/16 05/08/18 Nitroglycerin Sl Tabs [Nitrostat] 0.4 mg SUBLINGUAL Q5M PRN 03/16/16 05/08/18 Aspirin EC [Ecotrin Low Dose] 81 mg PO DAILY 05/08/18 05/08/18 Ergocalciferol (Vitamin D2) 50,000 unit PO Q7D 05/08/18 05/08/18 [Vitamin D2] Fenofibrate [Lofibra] 54 mg PO DAILY 05/08/18 05/08/18 Losartan Potassium 100 mg PO DAILY 05/08/18 05/08/18 Omeprazole [PriLOSEC] 20 mg PO DAILY 05/08/18 05/08/18 polyethylene glycoL 3350 [Miralax] 17 gm PO DAILY PRN 05/08/18 05/08/18 Previous Rx's Medication Instructions Recorded Nicotine 14Mg/24Hr Patch [Habitrol] 1 patch TRANSDERM DAILY #14 patch 05/09/18 Ketorolac [Toradol] 10 mg PO Q6HR #15 tab 11/20/23 Allergies Allergy/AdvReac Type Severity Reaction Status Date / Time atorvastatin calcium AdvReac Confusion Verified 11/29/23 08:18 [From Lipitor] bupropion HCl AdvReac Abdominal Verified 11/29/23 08:18 [From Wellbutrin] Pain cyclobenzaprine HCl AdvReac depression Verified 11/29/23 08:18 [From Flexeril] metoprolol AdvReac Chest Pain Verified 11/29/23 08:18 simvastatin AdvReac heart burn Verified 11/29/23 08:18 Review of Systems ROS Statement: Those systems with pertinent positive or pertinent negative responses have been documented in the HPI. ROS Other: All systems not noted in ROS Statement are negative. Past Medical History Past Medical History: Cancer, GERD/Reflux, Hyperlipidemia, Hypertension, Osteoarthritis (OA) Additional Past Medical History / Comment(s): Cancerous colon polyp with removal, chronic low back and cervical pain, sciatica bilaterally, numbness/tingling L hand 4th/5th digits, tinnitis bilaterally on occasion, pt states hospitalized for 4 days around 2001 for what she believes was alcohol poisoning affecting her kidneys, pt denies any lung disease but is on puffers for "sometimes alittle SOB." History of Any Multi-Drug Resistant Organisms: None Reported Past Surgical History: Breast Surgery, Cholecystectomy, Hysterectomy Additional Past Surgical History / Comment(s): EGD, bilateral breast augmentation, colonoscopy with 1 cancerous polyp removed. Past Anesthesia/Blood Transfusion Reactions: Motion Sickness Additional Past Anesthesia/Blood Transfusion Reaction / Comment(s): STATES COUGHS COMING OUT OF ANESTHESIA. PT STATES SHE HAS RECEIVED BLOOD IN PAST WITHOUT REACTION. Past Psychological History: Anxiety, Depression Smoking Status: Current every day smoker Past Alcohol Use History: Occasional Past Drug Use History: Marijuana - Past Family History Father Family Medical History: Coronary Artery Disease (CAD), CVA/TIA, Myocardial Infarction (CA) Additional Family Medical History / Comment(s): Father had MIs and CVAs. He had his first CA at the age of 70yrs. MOTHER Family Medical History: Cancer Additional Family Medical History / Comment(s): Mother had lung/liver/brain cancer which she at when she was 59yrs old. General Exam - General Exam Comments Initial Comments: PHYSICAL EXAM: General Impression: Alert and oriented x3, not in acute distress HEENT: Normocephalic atraumatic, extra-ocular movements intact, pupils equal and reactive to light bilaterally, mucous membranes moist. Cardiovascular: Heart regular rate and rhythm Chest: Able to complete full sentences, no retractions, no tachypnea Abdomen: abdomen soft, non-tender, non-distended, no organomegaly Musculoskeletal: Pulses present and equal in all extremities, no peripheral edema Motor: no focal deficits noted Neurological: CN II-XII grossly intact, no focal motor or sensory deficits noted, patient jumps when pinched in the saddle area Skin: Intact with no visualized rashes Psych: Normal affect and mood Limitations: no limitations Course Vital Signs 11/29/23 11/29/23 08:11 10:44 Temperature 98.0 F Pulse Rate 75 74 Respiratory 18 18 Rate Blood Pressure 154/94 135/83 O2 Sat by Pulse 94 L 94 L Oximetry EKG Findings - EKG Comments: EKG Findings:: My EKG interpretation: Ventricular rate 77, sinus rhythm,. 181, QRS 117, QTc 469. No [place] prolongation, no QTC prolongation, no ST or T-wave changes noted. . Overall, this EKG is unremarkable Medical Decision Making - Medical Decision Making Was pt. sent in by a medical professional or institution (, PA, [employer], urgent care, hospital, or fpc...) When possible be specific @ -No Did you speak to anyone other than the patient for history (EMS, parent, family, police, friend...)? What history was obtained from this source @ -No Did you review nursing and triage notes (agree or disagree)? Why? @ -I reviewed and agree with nursing and triage notes Were old charts reviewed (outside hosp., previous admission, EMS record, old EKG, old radiological studies, urgent care reports/EKG's, fpc records)? Report findings @ -No old charts were reviewed Differential Diagnosis (chest pain, altered mental status, abdominal pain women, abdominal pain men, vaginal bleeding, musculoskeletal, weakness, fever, dyspnea, syncope, headache, dizziness, GI bleed, back pain, seizure, CVA, palpatations, m ental health)? @ -Differential Back Pain: Strain, zoster, cauda equina syndrome, epidural abscess, vertebral osteomyelitis, discitis, fracture, subluxation, disc herniation, DJD, spinal stenosis, dissection, AAA, pancreatitis, peptic ulcer disease, pyelonephritis, kidney stone, this is not meant to be an all-inclusive list. EKG interpreted by me (3pts min.). @ -None done X-rays interpreted by me (1pt min.). @ -Spinal x-rays were obtained showing no spinal abnormalities. There was incidental finding of right lower lobe airspace opacity CT interpreted by me (1pt min.). @ -CT chest was ordered due to incidental finding seen on x-ray. Showing right lung mass. U/S interpreted by me (1pt. min.). @ -None done What testing was considered but not performed or refused? (CT, X-rays, U/S, lab s)? Why? @ -None What meds were considered but not given or refused? Why? @ -None Did you discuss the management of the patient with other professionals (professionals i.e. , PA, [employer], lab, RT, psych nurse, hospital social worker, health coach, teacher, booking officer, case folder)? Give summary @ -Case discussed with hospitalist for admission. Was smoking cessation discussed for >3mins.? @ -No Was critical care preformed (if so, how long)? @ -No Were there social determinants of health that impacted care today? How? (Homelessness, low income, unemployed, alcoholism, drug addiction, transportation, low edu. Level, literacy, decrease access to med. care, halfway, rehab)? @ -No Was there de-escalation of care discussed even if they declined (Discuss DNR or withdrawal of care, Hospice)? DNR status @ -No What co-morbidities impacted this encounter? (DM, HTN, Smoking, COPD, CAD, Cancer, CVA, ARF, Chemo, Hep., AIDS, mental health diagnosis, sleep apnea, morbid obesity)? @ -None Was patient admitted / discharged? Hospital course, mention meds given and route, prescriptions, significant lab abnormalities, going to OR and other pertinent info. @ -63-year-old female presents to the emergency department for total back pain along with diffuse paresthesias. She has no high risk features. Vital signs stable. Imaging of the spine shows no acute processes. There was an incidental finding of a right lung mass that was further imaged with CT. Patient questioned about this states that she does not have any history of lung cancer. Patient will be admitted with consultation to oncology. Undiagnosed new problem with uncertain prognosis? @ -No Drug Therapy requiring intensive monitoring for toxicity (Heparin, Nitro, Insulin, Cardizem)? @ -No Were any procedures done? @ -No Diagnosis/symptom? Acute, or Chronic, or Acute on Chronic? Uncomplicated (without systemic symptoms) or Complicated (systemic symptoms)? @ -Cancer new diagnosis Side effects of treatment? @ -No Exacerbation, Progression, or Severe Exacerbation? @ -No Poses a threat to life or bodily function? How? (Chest pain, [place], CA, pneumonia, PE, COPD, DKA, ARF, appy, cholecystitis, CVA, Diverticulitis, Homicidal, Suicida l, threat to staff... and all critical care pts) @ -yes - Lab Data Result diagrams: 11/29/23 09:21 11/29/23 09:21 Lab Results 11/29/23 11/29/23 Range/Units 09:21 09:21 WBC 8.3 (3.8-10.6) k/uL RBC 4.80 (3.80-5.40) m/uL Hgb 14.5 (11.4-16.0) gm/dL Hct 42.5 (34.0-46.0) % MCV 88.6 (80.0-100.0) fL MCH 30.3 (25.0-35.0) pg MCHC 34.1 (31.0-37.0) g/dL RDW 13.3 (11.5-15.5) % Plt Count 260 (150-450) k/uL MPV 7.6 Neutrophils % 75 % Lymphocytes % 17 % Monocytes % 5 % Eosinophils % 1 % Basophils % 1 % Neutrophils # 6.2 (1.3-7.7) k/uL Lymphocytes # 1.4 (1.0-4.8) k/uL Monocytes # 0.4 (0-1.0) k/uL Eosinophils # 0.1 (0-0.7) k/uL Basophils # 0.0 (0-0.2) k/uL Sodium 139 (137-145) mmol/L Potassium 3.5 (3.5-5.1) mmol/L Chloride 106 (98-107) mmol/L Carbon Dioxide 24 (22-30) mmol/L Anion Gap 9 mmol/L BUN 20 H (7-17) mg/dL Creatinine 0.89 (0.52-1.04) mg/dL Est GFR (CKD-EPI)AfAm 79 (>60 ml/min/1.73 sqM) Est GFR (CKD-EPI)NonAf 68 (>60 ml/min/1.73 sqM) Glucose 113 H (74-99) mg/dL Calcium 9.5 (8.4-10.2) mg/dL Disposition Clinical Impression: Lung cancer, Polymyalgia rheumatica Disposition: ADMITTED IP TO THIS HOSP Condition: Serious Referrals: Emile Wayne MD [Primary Care Provider] - 1-2 days Decision Time: 12:00
--- NOTE | 2023-11-29 09:48 | XR ---
EXAMINATION TYPE: XR spine complete AP and Lat DATE OF EXAM: 11/29/2023 9:29 AM CLINICAL INDICATION:Female, 63 years old with history of pain; COMPARISON: 11/29/2023. TECHNIQUE: XR spine complete AP and Lat views of the spine in Frontal and lateral projections. FINDINGS: No evidence of acute fracture. There is scattered multilevel disk space narrowing without loss of ve rtebral body height. There is normal alignment of the vertebral bodies. Scattered osteophyte formatio n along the anterior and lateral aspects of the vertebral bodies. Neural foramen are patent given grayson itations of this exam. Spinal canal appears patent. Right middle lobe airspace opacity seen on single view of the thoracic spine. Right upper quadrant cholecystectomy changes. IMPRESSION: 1. No acute osseous pathology. 2. Mild multilevel degeneration changes throughout the spine. 3. Right middle lobe airspace opacities. Consider cross-sectional imaging recommended to rule out ma ss.
[2023-11-29 09:51] LABS: Basophils % (A) 1 %; Eosinophils # (A) 0.1 k/uL (0-0.7); Eosinophils % (A) 1 %; HCT 42.5 % (34.0-46.0); HGB 14.5 gm/dL (11.4-16.0); Lymphocytes # (A) 1.4 k/uL (1.0-4.8); Lymphocytes % (A) 17 %; MCH 30.3 pg (25.0-35.0); MCHC 34.1 g/dL (31.0-37.0); MCV 88.6 fL (80.0-100.0); Mean Platelet Volume 7.6; Monocytes # (A) 0.4 k/uL (0-1.0); Monocytes % (A) 5 %; Neutrophils # (A) 6.2 k/uL (1.3-7.7); Neutrophils % (A) 75 %; Platelet Count 260 k/uL (150-450); RDW 13.3 % (11.5-15.5); WBC 8.3 k/uL (3.8-10.6)
[2023-11-29 10:08] LABS: African American GFR (CKD) 79 (>60 ml/min/1.73 sqM); Anion Gap 9 mmol/L; Blood Urea Nitrogen 20 mg/dL (7-17); Calcium 9.5 mg/dL (8.4-10.2); Carbon Dioxide 24 mmol/L (22-30); Chloride 106 mmol/L (98-107); Glucose 113 mg/dL (74-99); Non-African American GFR(CKD) 68 (>60 ml/min/1.73 sqM); Potassium 3.5 mmol/L (3.5-5.1); Sodium 139 mmol/L (137-145)
--- NOTE | 2023-11-29 11:36 | CT ---
EXAMINATION TYPE: CT chest wo con DATE OF EXAM: 11/29/2023 COMPARISON: None HISTORY: mass CT DLP: 445.9 mGycm, Automated exposure control for dose reduction was used. CONTRAST: Performed injected with 0 mL of Isovue 300. TECHNIQUE: Axial images were obtained at 5 mm thick sections. Reconstructed images are reviewed on [employer] computer in the coronal plane. FINDINGS: Portion of the thyroid visualized is normal. Bilateral breast prostheses are present. There is a large right hilar mass with extension into the mediastinum. This is difficult to separate from vascular structures. Pretracheal lymphadenopathy appears to be present.. Subcarinal adenopathy a ppears to be present. Direct extension of mass however would be within the differential on this nonco ntrast study. Best estimate on mass size is 8.6 x 5.7 cm with additional mediastinal adenopathy. No enlarged mediastinal or hilar adenopathy is evident. The ascending aorta diameter at the level o f the main pulmonary artery is 3.6 cm. The main pulmonary artery diameter at the bifurcation is 3.1 cm. Coronary artery calcification is present. Limited CT sections are obtained through the upper abdomen. Left adrenal gland is thickened at 1.4 cm . Right adrenal gland appears normal. Note is made of calcification within the lumen of the aorta. An aortic dissection of the mid abdominal aorta is partially visualized. IMPRESSION: 1. Large right hilar mass with mediastinal adenopathy. Additional workup with PET CT recommended.
[2023-11-29] MEDS ORDERED: MORPHINE SULFATE 4 MG/ML SYRINGE IV PRN (11:53)
[2023-11-29] MEDS ORDERED: NALOXONE 0.4 MG/ML 1 ML VIAL IV PRN (11:53)
[2023-11-29] MEDS ORDERED: SODIUM CHLORIDE 0.9% 1,000 ML IV SCH (12:00)
[2023-11-29] MEDS ORDERED: MORPHINE SULFATE 4 MG/ML SYRINGE IV STA (12:09)
--- NOTE | 2023-11-29 12:09 | ED ---
Medical Decision Making - Medical Decision Making After further discussion with hospitalist team along with hospice case manager patient does not meet criteria for hospital admission. She is given outpatient follow- up with oncology. Told to follow-up closely with her outpatient doctors. Patient agreeable with disposition plan. Patient reevaluated at 1208 and stable medical condition. - Lab Data Result diagrams: 11/29/23 09:21 11/29/23 09:21 Lab Results 11/29/23 11/29/23 Range/Units 09:21 09:21 WBC 8.3 (3.8-10.6) k/uL RBC 4.80 (3.80-5.40) m/uL Hgb 14.5 (11.4-16.0) gm/dL Hct 42.5 (34.0-46.0) % MCV 88.6 (80.0-100.0) fL MCH 30.3 (25.0-35.0) pg MCHC 34.1 (31.0-37.0) g/dL RDW 13.3 (11.5-15.5) % Plt Count 260 (150-450) k/uL MPV 7.6 Neutrophils % 75 % Lymphocytes % 17 % Monocytes % 5 % Eosinophils % 1 % Basophils % 1 % Neutrophils # 6.2 (1.3-7.7) k/uL Lymphocytes # 1.4 (1.0-4.8) k/uL Monocytes # 0.4 (0-1.0) k/uL Eosinophils # 0.1 (0-0.7) k/uL Basophils # 0.0 (0-0.2) k/uL Sodium 139 (137-145) mmol/L Potassium 3.5 (3.5-5.1) mmol/L Chloride 106 (98-107) mmol/L Carbon Dioxide 24 (22-30) mmol/L Anion Gap 9 mmol/L BUN 20 H (7-17) mg/dL Creatinine 0.89 (0.52-1.04) mg/dL Est GFR (CKD-EPI)AfAm 79 (>60 ml/min/1.73 sqM) Est GFR (CKD-EPI)NonAf 68 (>60 ml/min/1.73 sqM) Glucose 113 H (74-99) mg/dL Calcium 9.5 (8.4-10.2) mg/dL Disposition Clinical Impression: Lung cancer Disposition: HOME SELF-CARE Condition: Fair Is patient prescribed a controlled substance at d/c from ED?: No Referrals: Emile Wayne MD [Primary Care Provider] - 1-2 days Seb Felix [STAFF PHYSICIAN] - 1-2 days Time of Disposition: 12:08
[2023-11-29 13:02] VITALS: BP 164/96; PULSE 75; TEMP 97.7
== END 2023-11-29 12:42 | disposition home or self-care (01) ==
LOC: EC 07:58
DX: C34.91 Malignant neoplasm of unspecified part of right bronchus or lung (principal); M35.3 Polymyalgia rheumatica; I10 Essential (primary) hypertension; K21.9 Gastro-esophageal reflux disease without esophagitis; E78.5 Hyperlipidemia, unspecified; F32.A Depression, unspecified; F41.9 Anxiety disorder, unspecified; F17.200 Nicotine dependence, unspecified, uncomplicated; F12.90 Cannabis use, unspecified, uncomplicated; Z79.82 Long term (current) use of aspirin; Z79.899 Other long term (current) drug therapy; Z88.8 Allergy status to other drugs, medicaments and biological substances
CPT/HCPCS: 99285; 96374; 36415; 93005; 80048; 85025; 72082; 71250; J2270